=== PATIENT | male | born 2000 | race Caucasian/White ===

== ENCOUNTER 2020-08-17 16:21 | Emergency (ER) | payer BC ==
--- NOTE | 2020-08-17 17:13 | EDPHYS ---
Physician Documentation [facility] Name: Jet Vee Age: 19 yrs Sex: Male : 2000 Arrival Date: 08/17/2020 Time: 16:28 Bed 5 Private MD: ED Physician Ed Carrasco HPI: 08/17 17:09 This 19 yrs old Male presents to ER via Ambulatory with complaints of Fever, jmm Breathing Difficulty. 17:09 The patient reports fever, not measured (subjective). Onset: The symptoms/episode jmm began/occurred gradually, last night. Modifying factors: The patient has had contact with sick. Associated signs and symptoms: Pertinent positives: cough, sinus congestion. This is a 19 year old male with no chronic medical conditions that presents to the ED with complaints of cough, congestion fever. Patient was exposed to a covid positive person at [employer]. . Historical: - Allergies: 16:47 No Known Allergies; ae4 - Home Meds: 16:47 None [Active]; ae4 - PSHx: 16:47 Tonsillectomy; ae4 - Immunization history:: Flu vaccine is not up to date. - Social history:: Smoking status: Patient reports the use of cigarette tobacco products, smokes one-half pack cigarettes per day. ROS: 17:09 Cardiovascular: Negative for chest pain, palpitations, and edema. jmm 17:09 Constitutional: Positive for fever. 17:09 Respiratory: Positive for cough. 17:09 All other systems are negative. Exam: 17:09 Constitutional: This is a well developed, well nourished patient who is awake, alert, jmm and in no acute distress. Head/Face: atraumatic. Eyes: EOMI, no conjunctival erythema appreciated ENT: Moist Mucus Membranes Neck: Trachea midline, Supple Chest/axilla: Normal chest wall appearance and motion. Cardiovascular: Regular rate and rhythm. No edema appreciated Respiratory: Normal respirations, no respiratory distress appreciated Abdomen/GI: Non distended, soft Back: Normal ROM Skin: General appearance color normal MS/ Extremity: Moves all extremities, no obvious deformities appreciated, no edema noted to the lower extremities Neuro: Awake and alert, normal gait Psych: Behavior is normal, Mood is normal, Patient is cooperative and pleasant Vital Signs: 16:44 BP 138 / 74; Pulse 85; Resp 17; Temp 99.2(TE); Pulse Ox 99% on R/A; Weight 58.97 kg ae4 (R); Height 5 ft. 3 in. (160.02 cm); Pain 3/10; 16:44 Body Mass Index 23.03 (58.97 kg, 160.02 cm) ae4 MDM: 17:04 Patient medically screened. maria eugenia 17:11 Data reviewed: vital signs, nurses notes. Counseling: I had a detailed discussion with maria eugenia the patient and/or guardian regarding: the historical points, exam findings, and any diagnostic results supporting the discharge/admit diagnosis, the need for outpatient follow up, to return to the emergency department if symptoms worsen or persist or if there are any questions or concerns that arise at home. ED course: Patient is alert and non toxic in appearance in the ED. No signs of acute resp distress. Patient is given strict return precautions. Patient understood and agrees with the plan of care. . 08/17 17:05 Order name: COVID-19 [facility] Administered Medications: 17:25 Drug: Decadron 10 mg Route: PO; [facility] 17:32 Follow up: Response: Medication administered at discharge. [facility] Disposition: 18:11 Co-signature as Attending Physician, Ed Carrasco MD. rn Disposition: 08/17/20 17:12 Discharged to Home. Impression: Other viral infections of unspecified site. - Condition is Stable. - Discharge Instructions: Viral Respiratory Infection, COVID-19. - Prescriptions for Albuterol Sulfate 90 mcg/actuation - inhale 1-2 puff by INHALATION route every 4-6 hours; 1 Inhaler. - Medication Reconciliation Form, Thank You Letter, Antibiotic Education, Prescription Opioid Use form. - Follow up: Private Physician; When: 2 - 3 days; Reason: Recheck today's complaints, Continuance of care, Re-evaluation by your physician. Signatures: Dispatcher [employer] EDMS Telly Palumbo PA PA jmm Nieto, Roman, MD MD rn Leal, Jahala, RN RN jl7 Christo Manzanares RN RN ae4 Corrections: (The following items were deleted from the chart) 17:32 17:12 08/17/2020 17:12 Discharged to Home. Impression: Other viral infections of jl unspecified site. Condition is Stable. Forms are Medication Reconciliation Form, Thank You Letter, Antibiotic Education, Prescription Opioid Use. Follow up: Private Physician; When: 2 - 3 days; Reason: Recheck today's complaints, Continuance of care, Re-evaluation by your physician. maria eugenia
--- NOTE | 2020-08-17 17:13 | ER ---
Nurse's Notes [facility] Name: Jet Vee Age: 19 yrs Sex: Male : 2000 Arrival Date: 08/17/2020 Time: 16:28 Bed 5 Private MD: Diagnosis: Other viral infections of unspecified site Presentation: 08/17 16:46 Chief complaint: Patient states: Pt states he was exposed to a family member who tested ae4 positive for covid 19. Coronavirus screen: Client denies travel out of the [place] in the last 14 days. Client presents with at least one sign or symptom that may indicate coronavirus-19. Standard/surgical mask placed on the client. Ebola Screen: Patient denies exposure to infectious person. Patient denies travel to an Ebola-affected area in the 21 days before illness onset. 16:46 Acuity: ANGELIA 4 ae4 16:46 Method Of Arrival: Ambulatory ae4 17:00 Initial Sepsis Screen: Does the patient meet any 2 criteria? No. Patient's initial jl7 sepsis screen is negative. Does the patient have a suspected source of infection? No. Patient's initial sepsis screen is negative. Risk Assessment: Do you want to hurt yourself or someone else? Patient reports no desire to harm self or others. Onset of symptoms was August 16, 2020. Care prior to arrival: None. Transition of care: patient was not received from another setting of care. Historical: - Allergies: 16:47 No Known Allergies; ae4 - Home Meds: 16:47 None [Active]; ae4 - PSHx: 16:47 Tonsillectomy; ae4 - Immunization history:: Flu vaccine is not up to date. - Social history:: Smoking status: Patient reports the use of cigarette tobacco products, smokes one-half pack cigarettes per day. Screenin:03 Abuse screen: Denies threats or abuse. Nutritional screening: No deficits noted. tw2 Tuberculosis screening: No symptoms or risk factors identified. Fall Risk None identified. Assessment: 17:00 General: Appears in no apparent distress. uncomfortable, Behavior is calm, cooperative, jl7 appropriate for age. Pain: Denies pain. Neuro: Level of Consciousness is awake, alert, obeys commands, Oriented to person, place, time, situation. Cardiovascular: Patient's skin is warm and dry. Respiratory: Airway is patent Respiratory effort is even, unlabored, Respiratory pattern is regular, symmetrical. Derm: Skin is pink, warm \T\ dry. 17:02 Reassessment: provider YUDY Varner at bedside at this time. tw2 Vital Signs: 16:44 BP 138 / 74; Pulse 85; Resp 17; Temp 99.2(TE); Pulse Ox 99% on R/A; Weight 58.97 kg ae4 (R); Height 5 ft. 3 in. (160.02 cm); Pain 3/10; 16:44 Body Mass Index 23.03 (58.97 kg, 160.02 cm) ae4 ED Course: 16:28 Patient arrived in ED. bg2 16:31 Telly Palumbo [facility] 16:31 Ed Carrasco MD is Attending Physician. [facility] 16:46 Triage completed. ae4 16:47 Arm band placed on right wrist. ae4 17:00 Bed in low position. Call light in reach. tw2 17:01 Gabe Baker RN is Primary Nurse. jl7 17:30 No provider procedures requiring assistance completed. Patient did not have IV access jl7 during this emergency room visit. 17:30 COVID swab sent to lab. jl7 Administered Medications: 17:25 Drug: Decadron 10 mg Route: PO; jl7 17:32 Follow up: Response: Medication administered at discharge. jl7 Outcome: 17:12 Discharge ordered by MD. [facility] 17:30 Discharged to home ambulatory. jl7 17:30 Condition: stable 17:30 Discharge instructions given to patient, Instructed on discharge instructions, follow up and referral plans. medication usage, Demonstrated understanding of instructions, follow-up care, medications, Prescriptions given X 1. 17:32 Patient left the ED. jl7 Addendum: 08/20/2020 12:22 Addendum: COVID-19 Result: Negative result given to RN to notify pt. Notified pt of a a5 negative COVID 19 swab results. Pt advised that even with a negative test result they should remain in isolation until symptom free for 3 days without medication. Pt also advised to return to the ED for worsening symptoms. Signatures: Telly Palumbo PA PA [facility] Nadya Waggoner, RN RN aa5 Magda Alcala bg2 Josefina Prado RN RN tw2 Gabe Baker, RN RN jl7 Christo Manzanares, RN RN ae4
[2020-08-17] MEDS ORDERED: dexAMETHasone 4 MG TAB ONE (17:32)
[2020-08-17 23:33] VITALS: BP 138/74; TEMP 99.2; O2SAT 99
== END 2020-08-17 17:32 | disposition home or self-care (01) ==
LOC: ER 16:21
DX: B34.9 Viral infection, unspecified (principal); F17.210 Nicotine dependence, cigarettes, uncomplicated; Z20.828 Contact with and (suspected) exposure to other viral communicable diseases
CPT/HCPCS: 99283; U0002; J8540